=== PATIENT | female | born 1940 | race Caucasian/White ===

== ENCOUNTER 2019-04-23 15:19 | Emergency (ER) | payer MEDICARE ==
--- NOTE | 2019-04-23 15:48 | ERPHSYRPT ---
- History of Present Illness Time Seen by Provider: 04/23/19 15:40 Source: patient, family Exam Limitations: no limitations Physician History: This is an 78-year-old female who has a history of chronic intermittent back pain who presents with right shoulder pain and worsening back pain that began Friday prior to this evaluation. Patient has a history of hypertension, elevated cholesterol, seizure disorder, arthritis, hypothyroidism, gastroesophageal reflux disease, hiatal hernia. And is not on any anticoagulation therapy. She does state that she does not have any anterior chest pain. Patient has patient has no known drug allergies. patient has no cardiovascular history per her report. However, she does have a history of an aneurysm. It is unclear whether this is thoracic aneurysm or intra-abdominal aneurysm. Timing/Duration: day(s) (4) Method of Injury: other (none) Quality: stabbing Back Pain Location: T-spine Severity of Pain-Max: mild Severity of Pain-Current: mild Modifying Factors: Improves With: movement Associated Symptoms: other (right shoulder and mid thoracic) Previous symptoms: same symptoms as today Allergies/Adverse Reactions: No Known Drug Allergies Allergy (Verified 04/23/19 15:36) Home Medications: Clonidine HCl Tts-1 Patch [Catapres-TTS 1 PATCH] 1 patch TOP UD 07/31/15 [ History] Esomeprazole Magnesium [Nexium] 40 mg PO DAILY 07/31/15 [History] Levothyroxine Sodium [Synthroid] 137 mcg PO DAILY 07/31/15 [History] Olmesartan Medoxomil 20 mg [Benicar 20 MG] 40 mg PO DAILY 07/31/15 [ History] Phenobarb 32.4 mg [Phenobarbital 32.4 mg] 1 tab PO TID 07/31/15 [History] Pravastatin Sodium [Pravachol] 10 mg PO DAILY 07/31/15 [History] Raloxifene HCl 60 mg [Evista 60 MG] 60 mg PO DAILY 07/31/15 [History] Allopurinol 100 mg [Zyloprim 100 mg] 100 mg PO DAILY 10/17/15 [History] Furosemide 20 mg [Lasix 20 mg] 20 mg PO BID 04/23/19 [History] Hx Tetanus, Diphtheria Vaccination/Date Given: No (UNSURE) Hx Influenza Vaccination/Date Given: No Hx Pneumococcal Vaccination/Date Given: No - Review of Systems Constitutional: No Symptoms Eyes: No Symptoms Ears, Nose, & Throat: No Symptoms Respiratory: No Symptoms Cardiac: No Symptoms Abdominal/Gastrointestinal: No Symptoms Genitourinary Symptoms: No Symptoms Musculoskeletal: Back Pain, Other (right shoulder pain) Skin: No Symptoms Neurological: No Symptoms Psychological: No Symptoms Endocrine: No Symptoms Hematologic/Lymphatic: No Symptoms Immunological/Allergic: No Symptoms All Other Systems: Reviewed and Negative - Past Medical History Pertinent Past Medical History: Yes Neurological History: Seizures ENT History: Cataracts Cardiac History: High Cholesterol, Hypertension Respiratory History: No Pertinent History Endocrine Medical History: Hypothyroidism Musculoskeletal History: Arthritis GI Medical History: Diverticulosis, GERD History: Other Psycho-Social History: No Pertinent History Female Reproductive Disorders: No Pertinent History Other Medical History: kidney output low : Sees Kidney MD [facility] - Past Surgical History Past Surgical History: Yes Neuro Surgical History: No Pertinent History Cardiac: No Pertinent History Respiratory: No Pertinent History Gastrointestinal: No Pertinent History Genitourinary: No Pertinent History Musculoskeletal: Joint Replacement Female Surgical History: No Pertinent History Other Surgical History: left knee replaced [facility] hip back surgery on 07/25/2015 - Social History Smoking Status: Former smoker Exposure to second hand smoke: No Drug Use: none Patient Lives Alone: No - Nursing Vital Signs Nursing Vital Signs: Initial Vital Signs Temperature 97.7 F 04/23/19 15:27 Pulse Rate 74 04/23/19 15:27 Respiratory Rate 16 04/23/19 15:27 Blood Pressure 159/77 04/23/19 15:27 O2 Sat by Pulse Oximetry 96 04/23/19 15:27 Pain Scale Pain Intensity [Right Shoulder 5 ] Pain Intensity 0 - Physical Exam General Appearance: mild distress, alert, anxiety Eye Exam: PERRL/EOMI, eyes nml inspection Ears, Nose, Throat Exam: normal ENT inspection, moist mucous membranes Neck Exam: normal inspection, non-tender, supple, full range of motion Respiratory Exam: normal breath sounds, lungs clear, airway intact, No chest tenderness, No respiratory distress Cardiovascular Exam: regular rate/rhythm, normal heart sounds, normal peripheral pulses Gastrointestinal Exam: soft, normal bowel sounds, No tenderness Pelvic Exam: not done Rectal Exam: not done Back Exam: normal inspection, normal range of motion, No CVA tenderness, No vertebral tenderness Extremity Exam: normal inspection, normal range of motion, pelvis stable Neurologic Exam: alert, oriented x 3, cooperative, 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 remainder ekg unchanged) Ordered Tests: Active Orders 24 hr Category Date Time Status Hoseman STAT Care 04/23/19 16:00 Active EKG-ER Only STAT Care 04/23/19 15:59 Active IV Insertion STAT Care 04/23/19 15:59 Active Pulse Oximetry (ED) STAT Care 04/23/19 15:59 Active AORTA [US] Stat Exams 04/23/19 17:33 Taken CHEST 1 VIEW (PORTABLE) Stat Exams 04/23/19 16:00 Taken CBC W DIFF Stat Lab 04/23/19 15:40 Completed CMP Stat Lab 04/23/19 15:40 Completed D-DIMER QUANTITATIVE Stat Lab 04/23/19 15:40 Completed NT PRO BNP Stat Lab 04/23/19 15:40 Completed PROTIME WITH INR Stat Lab 04/23/19 15:40 Completed TROPONIN Q3H Lab 04/23/19 15:40 Completed TROPONIN Q3H Lab 04/23/19 19:00 Ordered TROPONIN Q3H Lab 04/23/19 22:00 Ordered TROPONIN Q3H Lab 04/24/19 01:00 Ordered TROPONIN Q3H Lab 04/24/19 04:00 Ordered Lab/Rad Data: Laboratory Result Diagrams 04/23/19 15:40 04/23/19 15:40 Laboratory Results 04/23/19 04/23/19 04/23/19 Range/Units 15:40 15:40 15:40 WBC (4.0-10.5) K/mm3 RBC (4.1-5.4) M/mm3 Hgb (12.0-16.0) gm/dl Hct (35-47) % MCV (78-100) fl MCH (26-32) pg MCHC (32-36) g/dl RDW (11.5-14.0) % Plt Count (150-450) K/mm3 MPV (7.5-11.0) fl Gran % (36.0-66.0) % Eos # (Auto) (0-0.5) Absolute Lymphs (auto) (1.0-4.6) Absolute Monos (auto) (0.0-1.3) Lymphocytes % (24.0-44.0) % Monocytes % (0.0-12.0) % Eosinophils % (0.00-5.0) % Basophils % (0.0-0.4) % Absolute Granulocytes (1.4-6.9) Basophils # (0-0.4) PT 12.4 H (9.95-12.35) SECONDS INR 1.10 (0.8-3.0) D-Dimer 1140 H* (215-500) ng/mL Sodium 139 (137-145) mmol/L Potassium 3.8 (3.5-5.1) mmol/L Chloride 102 (98-107) mmol/L Carbon Dioxide 27 (22-30) mmol/L Anion Gap 13.8 (5-15) MEQ/L BUN 33 H (7-17) mg/dL Creatinine 1.71 H (0.52-1.04) mg/dL Estimated GFR 30.5 ML/MIN Glucose 125 H (74-106) mg/dL Calcium 9.0 (8.4-10.2) mg/dL Total Bilirubin 0.30 (0.2-1.3) mg/dL AST 23 (14-36) U/L ALT 10 (0-35) U/L Alkaline Phosphatase 117 (38-126) U/L Troponin I < 0.012 (0.000-0.034) ng/mL NT-Pro-B Natriuret Pep 478 (0-1800) pg/mL Serum Total Protein 7.2 (6.3-8.2) g/dL Albumin 3.7 (3.5-5.0) g/dL 04/23/19 Range/Units 15:40 WBC 4.2 (4.0-10.5) K/mm3 RBC 3.37 L (4.1-5.4) M/mm3 Hgb 10.7 L (12.0-16.0) gm/dl Hct 32.8 L (35-47) % MCV 97.3 (78-100) fl MCH 31.8 (26-32) pg MCHC 32.6 (32-36) g/dl RDW 14.3 H (11.5-14.0) % Plt Count 150 (150-450) K/mm3 MPV 11.7 H (7.5-11.0) fl Gran % 58.6 (36.0-66.0) % Eos # (Auto) 0.20 (0-0.5) Absolute Lymphs (auto) 1.04 (1.0-4.6) Absolute Monos (auto) 0.47 (0.0-1.3) Lymphocytes % 25.1 (24.0-44.0) % Monocytes % 11.3 (0.0-12.0) % Eosinophils % 4.8 (0.00-5.0) % Basophils % 0.2 (0.0-0.4) % Absolute Granulocytes 2.43 (1.4-6.9) Basophils # 0.01 (0-0.4) PT (9.95-12.35) SECONDS INR (0.8-3.0) D-Dimer (215-500) ng/mL Sodium (137-145) mmol/L Potassium (3.5-5.1) mmol/L Chloride (98-107) mmol/L Carbon Dioxide (22-30) mmol/L Anion Gap (5-15) MEQ/L BUN (7-17) mg/dL Creatinine (0.52-1.04) mg/dL Estimated GFR ML/MIN Glucose (74-106) mg/dL Calcium (8.4-10.2) mg/dL Total Bilirubin (0.2-1.3) mg/dL AST (14-36) U/L ALT (0-35) U/L Alkaline Phosphatase (38-126) U/L Troponin I (0.000-0.034) ng/mL NT-Pro-B Natriuret Pep (0-1800) pg/mL Serum Total Protein (6.3-8.2) g/dL Albumin (3.5-5.0) g/dL - Progress Progress: unchanged Progress Note: 04/23/19 18:[address] Mcfadden, a youth advocate who is covering for the patient's youth advocate. I reviewed the patient history and patient, laboratory data and EKG results with him. We are unable to perform the VQ scan today because we do not have the radio nucleotide material to perform it. In addition, the patient will need further evaluation of her thoracic aortic aneurysm that she is aware she has. His recommendation is to transfer the patient to [facility] emergency room. I contacted the transfer center and spoke with the emergency room physician Dr. Danis Gonzalez. I reviewed the patient history , condition, laboratory and EKG results with him. He accepts the patient for transfer. There are no recommendations given to me by either physician. Discussed with : Other Counseled pt/family regarding: lab results, diagnosis - Departure Departure Disposition: Home Clinical Impression: Elevated d-dimer, Thoracic back pain, Renal disease, Thoracic aortic aneurysm Condition: Stable Critical Care Time: No Referrals: LAURENCE DOTSON [Primary Care Provider] -
[2019-04-23 16:22] LABS: Absolute Neutrophil Ct (ANC) 2.43 (1.4-6.9); BASOPHIL % 0.2 % (0.0-0.4); Basophil (Absolute #) 0.01 (0-0.4); Eosinophil % 4.8 % (0.00-5.0); Hematocrit 32.8 % (35-47); Hemoglobin 10.7 gm/dl (12.0-16.0); Lymphocyte (Absolute #) 1.04 (1.0-4.6); Lymphocytes % 25.1 % (24.0-44.0); Mean Cell Volume 97.3 fl (78-100); Mean Corpuscular Hemoglobin 31.8 pg (26-32); Mean Corpuscular Hgb Concent. 32.6 g/dl (32-36); Mean Platelet Volume 11.7 fl (7.5-11.0); Monocyte (Absolute #) 0.47 (0.0-1.3); Monocytes % 11.3 % (0.0-12.0); Neutrophil % 58.6 % (36.0-66.0); Platelet Count 150 K/mm3 (150-450); Red Blood Count 3.37 M/mm3 (4.1-5.4); Red Cell Distribution Width 14.3 % (11.5-14.0); White Blood Count 4.2 K/mm3 (4.0-10.5)
[2019-04-23 16:32] LABS: INR 1.1 (0.8-3.0); PROTIME 12.4 SECONDS (9.95-12.35)
[2019-04-23 16:45] LABS: ALBUMIN 3.7 g/dL (3.5-5.0); ANION GAP 13.8 MEQ/L (5-15); BILIRUBIN,TOTAL 0.3 mg/dL (0.2-1.3); Creatinine 1 1.71 mg/dL (0.52-1.04); Potassium 3.8 mmol/L (3.5-5.1); Total Protein 7.2 g/dL (6.3-8.2)
[2019-04-23 18:57] VITALS: O2SAT 95
[2019-04-23 19:30] VITALS: BP 171/71; PULSE 67
--- NOTE | 2019-04-23 21:37 | XRAY ---
Indication: Aortic aneurysm. Two-dimensional sonogram of the abdominal aorta performed. Comparison: None Aorta demonstrates diffuse scattered arteriosclerotic disease. Maximum diameter of the proximal aorta is 3.0 x 2.5 cm. Mid aorta is 1.4 x 1.5 cm. Distal aorta is 0.7 x 1.5 cm. Right common iliac artery measures 1.0 x 1.0 cm and the left measures 1.1 x 1.2 cm. No free fluid or evidence for active hemorrhage. Impression: Scattered arteriosclerotic disease. Negative AAA.
--- NOTE | 2019-04-23 21:42 | XRAY ---
Indication: Cough and back pain radiating down right arm. Comparison: August 01, 2015. Portable chest remains hyperinflated and clear. Heart is not enlarged with stable right paratracheal soft tissue opacity. Bony thorax intact again with osteopenia, degenerative changes, and scoliosis. Impression: Stable nonacute chest with chronic features.
== END 2019-04-23 19:48 | disposition short-term general hospital (02) ==
LOC: ED 15:19
DX: R79.89 Other specified abnormal findings of blood chemistry (principal); M54.6 Pain in thoracic spine; N28.9 Disorder of kidney and ureter, unspecified; I71.2 Thoracic aortic aneurysm, without rupture
CPT/HCPCS: 36000; 36415; 71045; 76770; 80053; 83880; 84484; 85025; 85379; 85610; 93005; 93041; 94760; 99285

== ENCOUNTER 2019-11-29 12:13 | Emergency (ER) | payer MEDICARE ==
--- NOTE | 2019-11-29 13:16 | ERPHSYRPT ---
- History of Present Illness Source: patient Exam Limitations: other (Poor historian) Patient Subjective Stated Complaint: pt here for pain to right knee from a fall on sat, she states she lost her balance and landed on right knee, pt uses a walker , she also co pain to right rib area Triage Nursing Assessment: pt alert, arreived per wc with face mask in place, pt has swelling with a bruise to knee, no bruising noted to right rib area, resp easy Physician History: 79 yo wf fell at home 2 days ago after tipping walker over. Pt denies LOC but did hit head and has a mild VILLEDA. She complains of R rib pain and R knee pain. Pt has chronic R knee pain but states worse. She denies C/T/L-spine pain/Hip pain/focal weakness/chest pain/dyspnea/fever. Occurred: days ago (2 days ago) Reason for Fall: tripped (Walker tipped over) Injuries/Pain Location: head, chest, lower Loss of Consciousness: no loss of consciousness, other (Mild VILLEDA) Quality: aching Severity of Pain-Max: mild Severity of Pain-Current: mild Modifying Factors: Improves With: other (Weight bearing increases pain) Associated Symptoms (Fall): extremity injury, headache, No abdominal pain, No back pain, No confusion, No chest pain, No dizziness, No lightheadedness, No muscle spasms, No nausea, No neck pain, No ringing in ears, No seizures, No shortness of breath, No slurred speech, No trouble walking, No vomiting, No vision changes Allergies/Adverse Reactions: No Known Drug Allergies Allergy (Verified 11/29/19 12:30) Home Medications: Clonidine HCl Tts-1 Patch [Catapres-TTS 1 PATCH] 1 patch TOP UD 07/31/15 [History] Esomeprazole Magnesium [Nexium] 40 mg PO DAILY 07/31/15 [History] Levothyroxine Sodium [Synthroid] 137 mcg PO DAILY 07/31/15 [History] Olmesartan Medoxomil 20 mg [Benicar 20 MG] 40 mg PO DAILY 07/31/15 [History] Phenobarb 32.4 mg [Phenobarbital 32.4 mg] 1 tab PO TID 07/31/15 [History] Pravastatin Sodium [Pravachol] 10 mg PO DAILY 07/31/15 [History] Raloxifene HCl 60 mg [Evista 60 MG] 60 mg PO DAILY 07/31/15 [History] Allopurinol 100 mg [Zyloprim 100 mg] 100 mg PO DAILY 10/17/15 [History] Furosemide 20 mg [Lasix 20 mg] 20 mg PO BID 04/23/19 [History] Hx Tetanus, Diphtheria Vaccination/Date Given: No (UNSURE) Hx Influenza Vaccination/Date Given: No Hx Pneumococcal Vaccination/Date Given: No Immunizations Up to Date: Yes Travel Risk - International Travel Have you traveled outside of the country in past 3 weeks: No - Coronavirus Screening Are you exhibiting any of the following symptoms?: No - Review of Systems Constitutional: No Symptoms Eyes: No Symptoms Ears, Nose, & Throat: No Symptoms Respiratory: No Symptoms Cardiac: No Symptoms Abdominal/Gastrointestinal: No Symptoms Genitourinary Symptoms: No Symptoms Musculoskeletal: Joint Pain Skin: No Symptoms Neurological: Headache Psychological: No Symptoms Endocrine: No Symptoms Hematologic/Lymphatic: No Symptoms Immunological/Allergic: No Symptoms - Past Medical History Pertinent Past Medical History: Yes Neurological History: Seizures ENT History: Cataracts Cardiac History: High Cholesterol, Hypertension Respiratory History: No Pertinent History Endocrine Medical History: Hypothyroidism Musculoskeletal History: Arthritis GI Medical History: Diverticulosis, GERD History: Other Psycho-Social History: No Pertinent History Female Reproductive Disorders: No Pertinent History Other Medical History: kidney output low : Sees Kidney MD [facility] - Past Surgical History Past Surgical History: Yes Neuro Surgical History: No Pertinent History Cardiac: No Pertinent History Respiratory: No Pertinent History Gastrointestinal: No Pertinent History Genitourinary: No Pertinent History Musculoskeletal: Joint Replacement Female Surgical History: No Pertinent History Other Surgical History: left knee replaced righ hip back surgery on 07/25/2015 - Social History Smoking Status: Former smoker Exposure to second hand smoke: No Drug Use: none Patient Lives Alone: No Significant Family History: no pertinent family hx - Female History Hx Last Menstrual Period: post Hx Now: No - Nursing Vital Signs Nursing Vital Signs: Initial Vital Signs Temperature 97.4 F 11/29/19 12:26 Pulse Rate 74 11/29/19 12:26 Respiratory Rate 18 11/29/19 12:26 Blood Pressure 168/79 11/29/19 12:26 Pain Scale Pain Intensity 4 - Sarahy Coma Score Best Eye Response ([place]): (4) open spontaneously Best Verbal Response ([place]): (5) oriented Best Motor Response (Sarahy): (6) obeys commands Sarahy Total: 15 - Physical Exam General Appearance: no apparent distress Head Injury: ecchymosis (Large ecchymotic area L frontal area) Eye Exam: PERRL/EOMI, eyes nml inspection ENT Exam: airway nml, nml ext.inspection, No evidence of ENT injury, No clear fluid (ears), No clear fluid (nose), No midface instability Neck Exam: supple, trachea midline, full range of motion, other (C-spine NTTP) Respiratory/Chest Exam: normal breath sounds, other (R lateral thorax TTP), No respiratory distress Cardiovascular Exam: normal heart sounds, regular rate/rhythm, No murmur Gastrointestinal Exam: soft, normal bowel sounds, No tenderness Back Exam: normal inspection, normal range of motion, No vertebral tenderness Extremity Exam: pelvis stable (R knee edematous w diffuse ttp) Neurologic Exam: alert, oriented x 3, cooperative, 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, normal mood/affect, nml station & gait, sensation nml, No motor deficits, No sensory deficit Skin Exam: normal color, warm, dry SpO2 Interpretation: normal O2 Delivery: Room Air - Course Nursing assessment & vital signs reviewed: Yes - Radiology Exams Knee X-ray Interpretation: Discussed w/ radiologist (No fx/DJD) - CT Exams Head CT Interpretation: Discussed w/radiologist (Nothing acute) Chest CT Interpretation: Discussed w/radiologist (R posterior 10th/11th rib fx) Ordered Tests: Active Orders 24 hr Category Date Time Status CHEST WITHOUT CONTRAST [CT] Stat Exams 11/29/19 13:00 Completed HEAD WITHOUT CONTRAST [CT] Stat Exams 11/29/19 13:00 Completed KNEE (3 VIEWS) Stat Exams 11/29/19 13:36 Completed Medication Summary Discontinued Medications Generic Name Dose Route Start Last Admin Trade Name Freq PRN Reason Stop Dose Admin Ketorolac Tromethamine 15 mg 11/29/19 14:47 11/29/19 14:50 Toradol 30 Mg Injection IM 11/29/19 14:48 15 mg STAT ONE Administration Ketorolac Tromethamine Confirm 11/29/19 14:48 Toradol 30 Mg Injection Administered 11/29/19 14:49 Dose 30 mg .ROUTE .STK-MED ONE - Progress Progress: improved Progress Note: 11/29/19 14:49 Pt given 15mg IM Toradol. She states that pain is minimal at this time Counseled pt/family regarding: diagnosis, need for follow-up, rad results - Departure Departure Disposition: Home Clinical Impression: Rib fractures, Contusion, knee, Forehead contusion Condition: Stable Critical Care Time: No Referrals: LAURENCE DOTSON [Primary Care Provider] - Instructions: Rib Fracture (DC), Contusion (DC), Preventing Falls Additional Instructions: Ice to contused areas for 12-24 hours Pain meds as needed Follow up with family MD in 1-2 days Make sure you cough and take deep breaths Return to ER for increasing shortness of breath/increasing chest pain/Temperature greater than 100.5 Prescriptions: Hydrocodone/APAP 5-325 Tab^^^ [Freeman 5-325 Tablet^^^] 1 tab PO Q6HPRN PRN #7 tablet MDD 6 PRN Reason: Pain
--- NOTE | 2019-11-29 14:00 | XRAY ---
Exam: CT of the head without IV contrast from 11/29/2019. CTDI: 53.92 mGy Comparison: None. Indication: 79-year-old female fell 3 days ago, complains of pain and bruising to left temporal area. Also complains of right-sided rib pain. Technique: Non-IV contrast axial images were obtained through the brain. Reconstructed coronal and sagittal images were created and reviewed. Findings: The lateral and third ventricles appear within normal limits of size for age. The fourth ventricle appears enlarged with prominence of the folia and cerebellar cisterns suggesting some generalized cerebellar atrophy. I also note mild prominence of the cortical sulci and sylvian fissures within the cerebrum, but the atrophic findings in the posterior fossa are more prominent than that seen in the cerebrum. I see no focal mass effect or midline shift. No acute intracranial bleed or abnormal extra-axial fluid collection is seen. There are only subtle chronic small vessel ischemic white matter changes seen within the cerebrum. A distinct focal cortical infarct is not evident. The calvarium of the skull appears intact. The visualized sinuses are clear. The mastoid air cells are clear without effusion. The middle ear cavities are grossly unremarkable. The orbits appear grossly unremarkable. Impression: 1. There appears to be at least moderate generalized cerebellar atrophy. This is slightly out of proportion to the milder cerebral atrophy seen above the tentorium. Correlate clinically. 2. No acute intracranial bleed or focal infarct within a major cerebral or cerebellar artery distribution is seen. I see only minor chronic small vessel ischemic white matter changes within the cerebrum. 3. No fracture of the calvarium of the skull is seen, particularly within the left temporal region.
--- NOTE | 2019-11-29 14:17 | XRAY ---
Exam: 3 view right knee series from 11/29/2019. Comparison: 3 view right knee series from 07/31/2015. Indication: 79-year-old female status post fall, pain within right knee. Findings: AP, shallow oblique, and a cross table lateral - medial view of the right knee were obtained. The bones are mildly demineralized. I again see some minimal spur formation at the lateral margin of the proximal right tibia and at the tibial eminences. Mild smooth central compression of the lateral tibial plateau is seen representing no change from 07/31/2015. Otherwise, both the medial and lateral compartment joint spaces are well-maintained. There is no fracture or dislocation. I suspect some mild narrowing of the patellofemoral joint with minimal spurring at the upper posterior and lower posterior margins of the right patella. No definite suprapatellar joint effusion is seen. Mild vascular calcification is seen within the projection of the distal superficial femoral artery and proximal calf arteries. Impression: 1. No acute right knee fracture or dislocation is seen. 2. 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 This is similar to the prior study. 3. I also note stable chronic mild smooth compression of the central portion of the lateral tibial plateau of the right knee. This is unchanged from 07/31/2015 as well..
[2019-11-29] MEDS ORDERED: TORAdol 30 mg Injection IM ONE (14:47)
--- NOTE | 2019-11-29 14:47 | XRAY ---
Exam: CT of the chest without IV contrast from 11/29/2019. CTDI: 6.48 mGy Comparison: CT of the chest without IV contrast from 05/12/2008. Indication: 79-year-old female fell 3 days ago, complains of right rib pain. Technique: Non-IV contrast axial images were obtained through the chest. Reconstructed coronal and sagittal images were created and reviewed. Findings: The heart size appears within normal limits without pericardial effusion. There is a large retrocardiac hiatal hernia which appears slightly larger as compared to 05/12/2008. Calcification is seen within the eduardo of the trachea and central branching bronchi. Some granulomatous calcifications are seen anterior to the distal trachea and the upper anterior aspect of the right hilum. I also note some aneurysmal enlargement of the ascending aorta which measures up to 4.4 cm in diameter on axial image #27. This is perhaps 1 mm larger than that seen on 05/12/2008. This is consistent with mild aneurysmal distention. Atherosclerotic vascular calcification is seen throughout the thoracic aorta. No pathologically enlarged thoracic lymph nodes are seen. The axilla appear unremarkable. There is some hyperinflation of the lung aceves. Tortuosity of the vessels within the upper right side of the mediastinum is again seen. No suspicious infiltrates or pneumothorax is seen. There appears to be a minimal posterior right pleural effusion with minimal linear atelectasis at the posterior right lung base. There is also some minimal linear scarring at the mid medial aspect of the right lung base. A small calcified granuloma is seen within the anterior right upper lung field. Minor focal pleural-parenchymal scarring is again seen at the posterior lateral aspect of the right upper lung field representing no change from 05/12/2008. In addition, there is a tiny noncalcified nodule measuring about 2.5 mm in diameter at the posterior lateral aspect of the right lower lobe on axial image #39. In retrospect, this is probably seen on axial image #37 from 05/12/2008. I don't believe this is significant. Minimal focal scarring is seen within the medial left lung apex on axial image #12 representing no change from 05/12/2008 as well. Bone window images reveal a minimally displaced posterior right 10th rib fracture on axial image #43 which appears to be acute or subacute. In addition, there is a deformity of the posterior medial aspect of the right 11th rib which is new and likely due to a recent fracture injury. No other definite right rib fracture line or cortical step-off deformity is seen. There is a minimal convexity of the upper thoracic spine toward the left and at least moderate convexity of the mid thoracic spine toward the right. 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 I also note advanced osteoarthritic changes throughout the thoracic spine, most pronounced within the upper and middle thirds of the thoracic spine. Some degenerative changes are also seen within the upper lumbar spine. There is a mild biconcave compression deformity of T6 which I believe is likely old. There is also mild central compression of the superior vertebral endplate of T9 which is likely old. Impression: 1. Mildly displaced acute fracture of the posterior aspect of the right 10th rib. There also appears to be deformity of the posterior medial aspect of the right 11th rib which is new from 05/12/2008 and probably represent an acute or subacute rib fracture injury. No other definite right-sided rib fracture is seen. There does appear to be a minimal posterior right pleural effusion. There is no pneumothorax. 2. I again see hyperinflation of the lungs and a large retrocardiac hiatal hernia. I also see some mild scattered plate atelectasis and multifocal scarring within the lung aceves, as discussed above. A tiny 2.5 mm noncalcified soft tissue nodule is seen posterolaterally within the right lower lobe lung field on axial image #39. In retrospect, I don't believe this represents a significant change from axial image #37 from 05/12/2008. Therefore, I don't believe this is significant. 3. Central old healed granulomatous disease and some mild aneurysmal enlargement of the ascending aorta are again noted. No active lung disease is seen.
[2019-11-29] MEDS ORDERED: TORAdol 30 mg Injection ONE (14:48)
[2019-11-29 15:07] VITALS: BP 179/69; PULSE 62; O2SAT 97
== END 2019-11-29 15:35 | disposition home or self-care (01) ==
LOC: ED 12:13
DX: S22.31XA Fracture of one rib, right side, initial encounter for closed fracture (principal); S27.9XXA Injury of unspecified intrathoracic organ, initial encounter; S80.01XA Contusion of right knee, initial encounter; S00.83XA Contusion of other part of head, initial encounter; W01.0XXA Fall on same level from slipping, tripping and stumbling without subsequent striking against object, initial encounter; Y93.9 Activity, unspecified; Y92.9 Unspecified place or not applicable; R51 Headache; Z79.899 Other long term (current) drug therapy; G40.909 Epilepsy, unspecified, not intractable, without status epilepticus; I10 Essential (primary) hypertension; E03.9 Hypothyroidism, unspecified
CPT/HCPCS: 70450; 71250; 73562; 96372; 99284; J1885

== ENCOUNTER 2021-11-15 07:18 | Day surgery (SDC) | payer MEDICARE ==
--- NOTE | 2021-11-14 08:58 | HP ---
DATE OF SURGERY: 11/15/2021 HISTORY OF PRESENT ILLNESS: The patient is an 81-year-old who complaints of acid in the throat and bad breath. She also complains of dysphagia. Food will go down, drinks and sometimes comes back up. She reports a history of a hiatal hernia as well. PAST MEDICAL HISTORY: Gastroesophageal reflux disease, gout, atrial fibrillation, thyroid, coronary artery disease, hypertension, pacemaker. PAST SURGICAL HISTORY: Left knee surgery. Back surgery. Pacemaker. ALLERGIES: NKDA. MEDICATIONS: Levothyroxine, Nexium, Allopurinol, amlodipine, carvedilol, Phenobarbital, duloxetine, iron, atorvastatin, Eliquis, Lasix, olmesartan. FAMILY HISTORY: Heart disease, heart attack, liver cancer. SOCIAL HISTORY: Former smoker, denies alcohol. REVIEW OF SYSTEMS: CONSTITUTIONAL: Denies fever or chills. CHEST: Denies shortness of breath. CVS: Denies chest pain. ABDOMEN: Denies abdominal pain. PHYSICAL EXAMINATION: GENERAL: No acute distress. CHEST: Nonlabored. No shortness of breath. CVS: Regular rate and rhythm. ABDOMEN: Soft. IMPRESSION: Dysphagia, regurgitation, reflux. PLAN: EGD with possible dilatation with Dr. Emir Regalado. As dictated by Sangeeta Rahman NP.
[2021-11-15] MEDS ORDERED: Lactated Ringers 1,000 ML IV SCH (07:30)
[2021-11-15] MEDS ORDERED: Lactated Ringers 1,000 ML IV ONE (08:02)
[2021-11-15] MEDS ORDERED: DIPRIVAN 200 MG/20 ML IV ONE (11:08)
[2021-11-15 11:58] VITALS: O2SAT 95
[2021-11-15 12:23] VITALS: BP 193/99; PULSE 65
--- NOTE | 2021-11-15 13:31 | OP ---
SURGERY DATE/TIME: 11/15/2021 1048 PREOPERATIVE DIAGNOSIS: Esophageal stricture. POSTOPERATIVE DIAGNOSES: 1) Esophageal stricture. 2) A 40% hiatal hernia. 3) Severe Presbyesophagus with very irregular contractions. PROCEDURE: EGD with balloon dilatation of esophageal stricture from size 30 to size 40. SURGEON: Emir Regalado M.D. ANESTHESIA: MAC. COMPLICATIONS: None. CONDITION: Stable. INDICATION: A patient requiring evaluation. She is having trouble swallowing. DESCRIPTION OF PROCEDURE: She is taken to endoscopy. Left lateral decubitus position. Esophageal stricture was present at the distal gastroesophageal junction. Fundus, body, antrum. Pylorus, duodenal bulb satisfactory. Scope withdrawn. 40% hiatal hernia. Scope withdrawn back up. The balloon was placed intergastric and then the scope and the balloon brought back to the gastroesophageal junction. It was started at about 20 and about 26 or 28 it started to tighten a little. It was able to be insufflated to a 40, this did improve this. There was a little light bleeding and this was inspected with a power sweeper operator and two small mucosal areas were satisfactory. The scope withdrawn. The patient tolerated the procedure satisfactorily. She was placed on Augmentin for 48 hours. She was given specific instructions to her daughter. If she has any temperature elevation or pain to let us know.
== END 2021-11-15 12:20 | disposition home or self-care (01) ==
LOC: SDC 07:18
PROVIDERS: ATTEND Surgery
DX: K44.9 Diaphragmatic hernia without obstruction or gangrene (principal); K22.2 Esophageal obstruction; K22.89 Other specified disease of esophagus
CPT/HCPCS: 99100; J2704